=== PATIENT | female | born 1935 | race Caucasian/White ===

== ENCOUNTER 2018-12-06 11:09 | Observation (INO) | payer MEDICARE, BC ==
[2018-12-06] MEDS ORDERED: NS 0.9% 1000 ML** 1,000 ML IV ONE (11:16)
--- NOTE | 2018-12-06 11:19 | ED ---
Neurological HPI - HPI Summary HPI Summary: Patient is a 83 y/o F presenting to ED via EMS with complaints of dizziness, near syncope, possible left sided facial droop. Patient woke up at 0500 with dizziness, states that she later felt near syncopal. She believes she went to sleep at around midnight. had thought the patient was altered, EMS was called. EMS reported that they were unsure if patient had a mild left facial droop, no other neurological Sx are otherwise reported. PMHx of diabetes, BG 146 per EMS. In room, patient claims dizziness only when standing. Chest pain, SOB, palpitations are denied. PMHx of DVT, no Hx of CVA. On triage, pain is denied, nothing is noted to aggravate/alleviate Sx. Home medications and allergies are reviewed. EMS arrived with patient at 1109. provider at bedside immediately to evaluate, NIH started at 1110. - History of Current Complaint Stated Complaint: DIZZINESS Hx Obtained From: Patient Onset/Duration: Started hours ago - 0500 dizziness, Still Present Timing: Constant Current Severity: None - pain denied Neurological Deficit Location: Facial - left Pain Intensity: 0 Pain Scale Used: 0-10 Numeric - 0/10 Character: Dizzy, Other: - near syncope, left facial droop Aggravating: Nothing Alleviating: Nothing Associated Signs and Symptoms: Positive: Weakness - left facial droop, Dizziness - Additional Pertinent History Primary Care Physician: [id number] - Allergy/Home Medications Allergies/Adverse Reactions: Allergies Allergy/AdvReac Type Severity Reaction Status Date / Time morphine Allergy Intermediate Hallucinati Verified 12/06/18 11:36 ons oxycodone Allergy Intermediate Hallucinati Verified 12/06/18 11:36 ons promethazine Allergy Intermediate Hallucinati Verified 12/06/18 11:36 ons Iodinated Contrast- Oral and Allergy Unknown Verified 12/06/18 11:36 IV Dye Reaction Details Estrogens AdvReac Severe Blood clots Verified 12/06/18 11:36 Home Medications: Home Medications Enoxaparin Sodium [Lovenox] 70 mg SUBCUT Q12H 12/06/18 [History Confirmed ] Glimepiride (NF) 1 mg PO DAILY 12/06/18 [History Confirmed 12/06/18] Methotrexate TAB* 10 mg PO WEEKLY 12/06/18 [History Confirmed 12/06/18] Metoprolol Succinate XL TAB* [Toprol XL TAB*] 100 mg PO BID 12/06/18 [History Confirmed 12/06/18] amLODIPine TAB* [Norvasc 5 mg TAB*] 5 mg PO DAILY 12/06/18 [History Confirmed ] PMH/Surg Hx/FS Hx/Imm Hx Endocrine/Hematology History: Reports: Hx Diabetes Denies: Hx Systemic Lupus Erythematosus Cardiovascular History: Reports: Hx Deep Vein Thrombosis - Left leg, Hx Hypertension Denies: Hx Congestive Heart Failure, Hx Pacemaker/ICD History: Reports: Other Problems/Disorders - urinary incontinence Denies: Hx Dialysis, Hx Renal Disease Musculoskeletal History: Reports: Hx Arthritis, Hx Rheumatoid Arthritis, Hx Bursitis, Other Musculoskeletal History - lumbar spinal stenosis, degenerative disc disease Sensory History: Denies: Hx Hearing Aid Psychiatric History: Denies: Hx Panic Disorder - Cancer History Cancer Type, Location and Year: Skin ca Hx Chemotherapy: No Hx Radiation Therapy: No - Surgical History Surgery Procedure, Year, and Place: Lumbar laminectomy-2009Cervical laminectomy- 2010[place] filter-2000Bladder sling-2001, carpal tunnel , tumor removed R wrist, cataract surgery - Family History Known Family History: Positive: Other - nephew and uncle with h/o blood clots. - Social History Alcohol Use: None Substance Use Type: Reports: None Smoking Status (MU): Never Smoked Tobacco Review of Systems Negative: Palpitations, Chest Pain Negative: Shortness Of Breath Neurological: Other - POSITIVE - DIZZINESS Positive: Weakness - LEFT FACIAL DROOP, Syncope - NEAR All Other Systems Reviewed And Are Negative: Yes Physical Exam - Summary Physical Exam Summary: GENERAL: Patient is a well-developed and nourished FEMALE who is lying comfortable in the stretcher. Patient is not in any acute respiratory distress. HEAD AND FACE: Normocephalic EYES: PERRLA, EOMI x 2. EARS: Hearing grossly intact. MOUTH: Oropharynx within normal limits. NECK: Supple, trachea is midline, no adenopathy, no JVD, no carotid bruit. CHEST: Symmetric, no tenderness at palpation LUNGS: Clear to auscultation bilaterally. No wheezing or crackles. CVS: Regular rate and rhythm, S1 and S2 present, no murmurs or gallops appreciated. ABDOMEN: Soft, non-tender. Bowel sounds are normal. No abdominal abnormal pulsations. EXTREMITIES: Full ROM in all major joints, no edema, no cyanosis or clubbing. NEURO: Alert and oriented x 3. No acute neurological deficits. Speech is normal and follows commands. Cranial nerves II-XII grossly intact, no dysmetria finger to nose, nml heel to kwan. GCS 15, NIH 0. Triage Information Reviewed: Yes Vital Signs On Initial Exam: Initial Vitals Temp Pulse Resp BP Pulse Ox 97.8 F 63 16 154/67 95 12/06/18 11:23 12/06/18 11:23 12/06/18 11:23 12/06/18 11:23 12/06/18 11:23 Vital Signs Reviewed: Yes - [place] Coma Scale Best Eye Response: 4 - Spontaneous Best Motor Response: 6 - Obeys Commands Best Verbal Response: 5 - Oriented Coma Scale Total: 15 Diagnostics - Laboratory Result Diagrams: 12/06/18 11:50 12/06/18 11:50 Lab Statement: Any lab studies that have been ordered have been reviewed, and results considered in the medical decision making process. - Radiology CXR Radiology Interpretation Completed By: Radiologist Summary of Radiographic Findings: CXR IMPRESSION: NO ACTIVE CARDIOPULMONARY DISEASE. THIS REPORT WAS REVIEWED BY ED PHYSICIAN. - CT BRAIN CT CT Interpretation Completed By: Radiologist Summary of CT Findings: BRAIN CT IMPRESSION: NO ACUTE INTRACRANIAL PATHOLOGY. PROXIMAL VESSEL ISCHEMIC CHANGES. THIS REPORT WAS REVIEWED BY ED PHYSICIAN. - EKG 1125 Cardiac Rate: Bradycardia - rate of 59 BPM EKG Rhythm: Sinus Bradycardia Ectopy: PVCs EKG Comparison: No Significant Change - similar to previous EKG done 10/27/11. Summary of EKG Findings: EKG showed sinus bradycardia with rate of 59 BPM, occasional PVCs, intervted T waves in anterior leads, similar to previous EKG done 10/27/11. NIH Scale - NIH Scale Level of Consciousness: Alert/Keenly Responsive Ask Patient the Month and His/Her Age: Both Correct Ask Pt to Open/Close Eyes and Internal Controls Analyst/Release Non-Paretic Hand: Both Correctly Best Gaze (Only Horizontal Eye Movement): Normal Visual Field Testing: No Visual Loss Facial Paresis-Pt to Smile & Close Eyes or Grimace Symmetry: Normal/Symmetrical Motor Function - Right Arm: No Drift-Holds 10 Seconds Motor Function - Left Arm: No Drift-Holds 10 Seconds Motor Function - Right Leg: No Drift-Holds 10 Seconds Motor Function - Left Leg: No Drift-Holds 10 Seconds Limb Ataxia-Must be out of Proportion to Weakness Present: Absent Sensory (Use Pinprick to Test Arms/Legs/Trunk/Face): Normal Best Language (Describe Picture, Name Items): No Aphasia Dysarthria (Read Several Words): Normal Extinction and Inattention: No Abnormality Total Score: 0 Re-Evaluation - Re-Evaluation First Eval Re-Evaluation Time: 11:27 Comment: has arrived in ED, he notes that patient does not appear to have facial droop but states that patient has possibly slightly slurred speech. However, the notes that he has hearing aids and is somewhat hard of hearing. Second Eval Re-Evaluation Time: 13:18 Comment: Discussed results with patient, patient to be admitted. The patient agrees with this plan. Course/Dx - Course Course Of Treatment: Patient is a 83 y/o F presenting to ED via EMS with complaints of dizziness, near syncope, possible left sided facial droop. Patient woke up at 0500 with dizziness, states that she later felt near syncopal. She believes she went to sleep at around midnight. had thought the patient was altered, EMS was called. EMS reported that they were unsure if patient had a mild left facial droop, no other neurological Sx are otherwise reported. PMHx of diabetes, BG 146 per EMS. In room, patient claims dizziness only when standing. Chest pain, SOB, palpitations are denied. PMHx of DVT, no Hx of CVA. NEURO: Alert and oriented x 3. No acute neurological deficits. Speech is normal and follows commands. Cranial nerves II-XII grossly intact, no dysmetria finger to nose, nml heel to kwan. GCS 15, NIH 0. later arrived in ED, he notes that patient does not appear to have facial droop but states that patient has possibly slightly slurred speech. EKG showed sinus bradycardia with rate of 59 BPM, occasional PVCs, intervted T waves in anterior leads, similar to previous EKG done 10/27/11. Labs showed RDW 16, BUN/creatinine ratio 27.8, glucose 146, lactic acid 1.1, trop 0, Triglycerides 182, cholesterol 186, LDL cholesterol 108, HDL cholesterol 41.2. UA showed 2+ protein , no ketones, nitrate, bilirubin, bacteria, glucose. During ED course, patient received antivert 25 mg PO, reglan 10 mg IV, and fluids. BRAIN CT IMPRESSION: NO ACUTE INTRACRANIAL PATHOLOGY. PROXIMAL VESSEL ISCHEMIC CHANGES. CXR IMPRESSION: NO ACTIVE CARDIOPULMONARY DISEASE. 1321 - Patient's case was discussed with Dr. Gill, Dr. Gill accepts for admission. Patient is agreeable with admission. - Diagnoses Provider Diagnoses: Dizziness - Physician Notifications Discussed Care Of Patient With: Denae Gill Time Discussed With Above Provider: 13:21 Instructed by Provider To: Other - 1321 - Patient's case was discussed with Dr. Gill, Dr. Gill accepts for admission. Discharge - Sign-Out/Discharge Documenting (check all that apply): Patient Departure - admit Patient Received Moderate/Deep Sedation with Procedure: No - Discharge Plan Condition: Stable Disposition: ADMITTED TO [facility] - Billing Disposition and Condition Condition: STABLE Disposition: Admitted to [facility] - Attestation Statements Document Initiated by Scribe: Yes Documenting Scribe: XOCHITL HAMMOND Provider For Whom Scribe is Documenting (Include Credential): LAUREEN CULLEN MD Scribe Attestation: XOCHITL Kingston , scribed for LAUREEN CULLEN MD on 12/06/18 at 2123. Scribe Documentation Reviewed: Yes Provider Attestation: The documentation as recorded by the XOCHITL sarmiento accurately reflects the service I personally performed and the decisions made by , LAUREEN CULLEN MD Status of Scribe Document: Viewed
[2018-12-06 12:02] LABS: ABS Basophils 0 10^3/ul (0-0.2); ABS Eosinophils 0 10^3/ul (0-0.6); ABS Lymphocytes 1.6 10^3/ul (1.0-4.8); ABS Monocytes 0.2 10^3/ul (0-0.8); ABS Neutrophils 3.7 10^3/ul (1.5-7.7); ABS Nucleated RBC 0 10^3/ul; Eosinophil % 0.6 %; Hematocrit 44 % (35-47); Hemoglobin 14.6 g/dl (12.0-16.0); Lymphocyte % 28.4 %; Mean Corpuscular HGB Conc 33 g/dl (31-36); Mean Corpuscular Hemoglobin 29 pg (27-31); Mean Corpuscular Volume 87 fL (80-97); Mean Platelet Volume 9.6 fL (7.4-10.4); Nucleated Red Blood Cells % 0.1; Platelet Count 173 10^3/ul (150-450); Red Cell Distribution Width 16 % (10.5-15); White Blood Count 5.6 10^3/ul (3.5-10.8)
[2018-12-06 12:15] LABS: Activated Partial Thrombo Time 32.6 seconds (26.0-36.3); INR 0.98 (0.77-1.02)
[2018-12-06 12:17] LABS: Albumin 4.2 g/dL (3.2-5.2); Albumin/Globulin Ratio 1.1 (1-3); BUN/Creatinine Ratio 27.8 (8-20); Calcium 9.9 mg/dL (8.6-10.3); EGFR African American 129.8 (>60); EGFR Non-African American 107.3 (>60); Globulin 3.9 g/dL (2-4); HDL Cholesterol 41.2 mg/dL; Potassium 4.1 mmol/L (3.5-5.0); Total Bilirubin 0.7 mg/dL (0.2-1.0); Total Protein 8.1 g/dL (6.4-8.9)
[2018-12-06 12:46] LABS: Urine Appearance Clear; Urine Bacteria Absent (Absent); Urine Bilirubin Negative (Negative); Urine Blood Negative (Negative); Urine Color Yellow; Urine Glucose Negative (Negative); Urine Ketones Negative (Negative); Urine Nitrite Negative (Negative); Urine Protein 2+(100 mg/dL) (Negative); Urine Red Blood Cell Trace(0-2/hpf) (Absent); Urine Specific Gravity 1.012 (1.010-1.030); Urine Urobilinogen Negative (Negative); Urine White Blood Cell Trace(0-5/hpf) (Absent)
[2018-12-06] MEDS ORDERED: Meclizine TAB* 12.5 MG PO ONE (12:49)
[2018-12-06] MEDS ORDERED: Metoclopramide IV* 5 MG/ML 2 ML VIAL IV ONE (12:49)
[2018-12-06] MEDS ORDERED: Ondansetron INJ* 2 MG/ML VIAL IV PRN (16:42)
[2018-12-06] MEDS ORDERED: Meclizine TAB* 12.5 MG PO PRN (16:42)
[2018-12-06] MEDS ORDERED: Dextrose 50% Syringe 50 ML* 25 GM/50 ML SYRINGE IV PUSH PRN (16:44)
--- NOTE | 2018-12-06 19:21 | HP ---
HISTORY AND PHYSICAL DATE OF ADMISSION: 12/06/18 PRIMARY CARE PROVIDER: Rossana Velez DO CHIEF COMPLAINT: Dizziness HISTORY OF PRESENT ILLNESS: 83-year-old female with a past medical history of uam-twjlwym-jusetjpsh diabetes ; hypertension; recurrent lower extremity DVT, on lifelong anticoagulation; cervical stenosis; chronic low back pain; and hyperlipidemia who presented with acute onset of dizziness and feeling off for 1 day. The patient is a vague historian, but she states that she woke up at about 5 a.m. on the day of presentation and felt "off" and maybe like her head "was full". She is unable to elaborate further exactly what this means. She denies chest pain, shortness of breath, URI symptoms like stuffy nose or post nasal drip, headache, vision changes, confusion, GI/ complaints. She does endorse fatigue, but state that this does not contribute to her feeling off. This morning went to go to the bathroom; when she stood up, she felt dizzy. She did not describe the room spinning around her and she did not have the sensation that she was going to pass out. She denied tunnel vision. She denied any loss of consciousness and she said that she went back to sleep and then continued to feel off with fatigue, malaise, and dizziness, but denied that it was positional. Her is also interviewed at bedside. He denies any speech slurring. He denies any focal weakness. He denies any incontinence of bladder or bowel and he denies any period where the patient was confused or was unresponsive. The patient also denies any confusion or any focal neurologic complaints including paresthesias. EMERGENCY ROOM COURSE: In the emergency room, her blood pressure was 144/68. Her other vital signs were unremarkable. She had labs drawn, which were fully unremarkable including a troponin of 0. She had a brain CT done that was notable for proximal vessel ischemic changes of unknown duration. She had a chest x-ray done as well, which showed no active cardiopulmonary disease. She had a urine sample drawn that showed 2+ protein, but otherwise no evidence of infection. The patient in the emergency room was given 1 L of normal saline, meclizine, and Reglan 10 mg x1. She then slept for 3 hours and awoke and felt better. She attempted to walk with nursing to get to the commode and reports continuing to feel dizzy and unsteady. She states that she has not had a sensation like this before and elected to be admitted for observation for further workup. PAST MEDICAL HISTORY: 1. Ert-jebvkvy-evybnptwq diabetes, well controlled with an A1c of 5.4. 2. Hypertension. 3. Hyperlipidemia. 4. Recurrent lower extremity DVTs, on lifelong anticoagulation. 5. Cervical stenosis. 6. Chronic low back pain. PAST SURGICAL HISTORY: 1. Bilateral cataract. 2. Right total knee replacement. 3. IVC placement. 4. Bladder suspension surgery. 5. Cervical spine surgery. 6. Lumbar spine surgery. MEDICATIONS: As follows: 1. Glimepiride 1 mg p.o. daily. 2. Metformin 500 mg p.o. b.i.d. 3. Metoprolol succinate 100 mg p.o. b.i.d. 4. Rabeprazole sodium 20 mg p.o. b.i.d. 5. Amlodipine 5 mg p.o. daily. 6. Enoxaparin 70 mg subcu q.12 hours. 7. Folic acid 1 mg p.o. b.i.d. 8. Levothyroxine 100 mcg p.o. daily. 9. Methotrexate 2.5 mg p.o. 1x a week FAMILY HISTORY: Notable for a mother who of cancer and a father who of heart disease. Otherwise, noncontributory. SOCIAL HISTORY: She lives at home with her , Nolan, who is her healthcare proxy. She rarely drinks alcohol. She is a lifetime nonsmoker or tobacco user. She denies any history of other substance use. She is currently retired and she used to work in a factory. REVIEW OF SYSTEMS: The patient denies fevers. Cardiac: She denies chest pain. Respiratory: She denies cough, she denies shortness of breath. GI: She denies nausea and vomiting, diarrhea, or abdominal pain. : She denies hematuria or dysuria. Neurologic: She does endorse global dizziness, but without focal weakness or sensory loss. She has no visual complaints. She has no dysphagia. She has no arthralgias or myalgias. Musculoskeletal: She does endorse chronic low back and neck pain that is unchanged in nature. Skin: She denies rashes or lesions. She denies depression or anxiety. PHYSICAL EXAMINATION GENERAL: She is a well-appearing woman, in no acute distress, lying in bed, pleasant and conversant, A and O x4. VITAL SIGNS: As noted, her blood pressure is 144/68; heart rate 55, sinus; respiratory rate 12; she is satting 98% on room air. HEENT: Her pupils are equal and reactive. She has moist mucous membranes. NECK: She has no cervical lymphadenopathy. LUNGS: Clear to auscultation bilaterally with no work of breathing. HEART: She has regular rate and rhythm with no murmurs, rubs, or gallops. ABDOMEN: Her belly is soft, nontender and nondistended with normoactive bowel sounds in all 4 quadrants. She has no hepatosplenomegaly. MUSCULOSKELETAL: She has no clubbing or cyanosis and full range of motion in all 4 legs. NEURO: Her cranial nerves II through XII are intact. She has 5/5 strength in bilateral upper extremities and bilateral lower extremities. She has unsteady gait on ambulation with nurse at bedside. SKIN: Her skin is without rashes or abnormalities. DIAGNOSTIC STUDIES/LAB DATA: She has a CBC with white blood cell count of 5.6, H and H of 14.6 and 44, and platelets of 173. She had an INR done, is 0.98. Her chemistry showed a sodium of 138, potassium 4.1, chloride 103, carbon dioxide 26, anion gap 9, creatinine 1.5, glucose 146, calcium 9.9. LFTs are unremarkable. UA was done, which is notable for 2+ protein, otherwise unremarkable. Imaging done is notable for a brain CT without contrast, which noted no acute intracranial pathology and proximal vessel ischemic changes. She had an EKG done, which was notable for sinus bradycardia, no evidence of acute ischemia and 1 VPC. Compared to prior, EKG largely unchanged with the exception of new VPC. She had a chest x-ray done that was unremarkable for active cardiopulmonary disease. All films were reviewed personally and EKG was reviewed personally. ASSESSMENT AND PLAN: This is an 83-year-old female with a past medical history of hle-grrojrd-cdudmvkgf diabetes; hypertension; hyperlipidemia; recurrent lower extremity DVTs, on lifelong anticoagulation; cervical stenosis; and chronic low back pain who presented with 1 day of acute onset of dizziness and nonspecific complaints of fatigue. In the emergency room, her imaging and vitals are reassuring and her NIH stroke scale was initially 0. Because she has persistent dizziness on ambulation after supportive treatment in the emergency room, she is admitted to the medicine service for observation and further workup of her dizziness. 1. Dizziness: Differential diagnosis for dizziness is broad and includes neurologic and cardiac reasons. We will admit the patient to the [facility] floor and keep her on tele overnight given her sinus bradycardia. Her troponins were flat. She has no chest pain. No indication to continue trending them. We will do orthostatic vitals when she reaches the floor. We will check TSH and B12 for metabolic reasons. In terms of neuro, I did consult Dr. Guerra and he will see the patient on 12/08/18. I have ordered MRI brain to follow up on her CT head. I have also ordered PT and OT consults to continue to work with her based on her wide- based gait and if needed, vestibular ocular training. She can have meclizine p.r.n. for dizziness and for symptomatic or supportive treatment of possible benign paroxysmal positional vertigo. 2. Diabetes: She is well controlled with last A1c of 5.4. Hold metformin and glimepiride. Continue low-dose sliding scale lispro. 3. Recurrent deep vein thrombosis: Continue her treatment dose Lovenox. 4. She has chronic low back pain and cervical stenosis: She has Tylenol p.r.n. for pain medication, which is consistent with her home pain medication. 5. Hypothyroid: Continue her Synthroid. 6. Hypertension: Continue her amlodipine and metoprolol. Her metoprolol dose is lowered slightly from 100 mg p.o. b.i.d. of the succinate to tartrate 50 mg p.o. b.i.d. given bradycardia. 7. Nutrition: She can be on carb consistent diet. 8. DVT prophylaxis: She is on treatment dose Lovenox. 9. Code status: She is full code. 10. Disposition. She is observation, admitted to [facility] for further workup. Specialists: Neurology with formal consult placed to Dr. Guerra. PCP will be contacted in the morning. The plan was discussed with her and her family members and they are in agreement. TIME SPENT: 60 minutes was spent in the planning and execution of this admission with over half of that spent at the bedside of the patient and providing direct patient care. [id number]/[facility] #: [id number] [facility]
[2018-12-06] MEDS: Folic Acid TAB* 1 MG PO SCH (21:00)
[2018-12-06] MEDS ORDERED: Methotrexate TAB* 2.5 MG PO SCH (21:00)
[2018-12-06] MEDS: amLODIPine TAB* 5 MG PO SCH (21:01)
[2018-12-06] MEDS: Metoprolol Tartrate TAB* 50 mg PO SCH (21:02)
[2018-12-06] MEDS: Enoxaparin(*) 80 MG/0.8 ML SYR SUBCUT SCH (21:03)
[2018-12-06] MEDS: Acetaminophen TAB* 325 MG PO PRN (22:08)
[2018-12-07 05:36] LABS: ABS Basophils 0.1 10^3/ul (0-0.2); ABS Eosinophils 0.1 10^3/ul (0-0.6); ABS Lymphocytes 2.8 10^3/ul (1.0-4.8); ABS Monocytes 0.6 10^3/ul (0-0.8); ABS Neutrophils 3.1 10^3/ul (1.5-7.7); ABS Nucleated RBC 0 10^3/ul; Eosinophil % 2.2 %; Hematocrit 40 % (35-47); Hemoglobin 13.2 g/dl (12.0-16.0); Lymphocyte % 42.1 %; Mean Corpuscular HGB Conc 33 g/dl (31-36); Mean Corpuscular Hemoglobin 29 pg (27-31); Mean Corpuscular Volume 87 fL (80-97); Mean Platelet Volume 9.4 fL (7.4-10.4); Nucleated Red Blood Cells % 0; Platelet Count 182 10^3/ul (150-450); Red Blood Count 4.61 10^6/ul (4.00-5.40); Red Cell Distribution Width 16 % (10.5-15); White Blood Count 6.7 10^3/ul (3.5-10.8)
[2018-12-07 05:53] LABS: Potassium 3.7 mmol/L (3.5-5.0)
[2018-12-07 05:54] LABS: EGFR African American 96.2 (>60); EGFR Non-African American 79.5 (>60)
[2018-12-07] MEDS ORDERED: Levothyroxine TAB* 100 MCG TAB PO SCH (06:00)
[2018-12-07] MEDS: Insulin LISPRO* 1 UNITS UNIT SUBCUT SCH ×2 (07:25→11:18)
[2018-12-07] MEDS ORDERED: amLODIPine TAB* 5 MG PO SCH (09:00)
--- NOTE | 2018-12-07 09:13 | PN ---
Subjective Date of Service: 12/07/18 Interval History: HD #2 on Observatin 83 yo F who presented with vague c/o dizziness. Overnight no acute events, was HTN 2/2 to missing her home medications during the day while in the ER, resolved with home meds. MRI done overnight, no acute changes Tele monitored overnight-no acute events, orthostatic vitals done, negative Pt reported intermittent mild dizziness overnight. this morning she has none, we had a long discussion about her actual symptoms which remain vauge, and she tells me that her home blood sugars run in the 40s-60s, her last A1C on file is 5.4, which is overly controlled ofr her age, we discuss backing off her DM meds as well as following up with PCP. MRI and imaging and labs are reassuring. She and agree for d/c to home Objective Active Medications: Acetaminophen (Tylenol Tab*) 650 mg PO Q6H PRN PRN Reason: FEVER/PAIN Last Admin: 12/06/18 22:08 Dose: 650 mg Amlodipine Besylate (Norvasc Tab*) 5 mg PO DAILY [facility] Last Admin: 12/06/18 21:01 Dose: 5 mg Dextrose (D50w Syringe 50 Ml*) 12.5 gm IV PUSH .FOR FS < 60 - SS PRN PRN Reason: FS < 60 Enoxaparin Sodium (Lovenox(*)) 70 mg SUBCUT Q12HR [facility] Last Admin: 12/06/18 21:03 Dose: 70 mg Folic Acid (Folvite Tab*) 1 mg PO BID [facility] Last Admin: 12/06/18 21:00 Dose: 1 mg Insulin Human Lispro (Humalog*) 0 - 10 units SUBCUT [facility]; Protocol Last Admin: 12/07/18 07:25 Dose: Not Given Levothyroxine Sodium (Synthroid Tab*) 100 mcg PO 0600 [facility] Last Admin: 12/07/18 05:10 Dose: 100 mcg Meclizine HCl (Antivert Tab*) 25 mg PO Q8HR PRN PRN Reason: DIZZINESS Methotrexate (Methotrexate Tab*) 10 mg PO Mo [facility] Last Admin: 12/06/18 21:02 Dose: 10 mg Metoprolol Tartrate (Lopressor Tab*) 50 mg PO Q12HR [facility] Last Admin: 12/06/18 21:02 Dose: 50 mg Ondansetron HCl (Zofran Inj*) 4 mg IV Q4H PRN PRN Reason: NAUSEA Vital Signs - 8 hr 12/07/18 12/07/18 12/07/18 03:06 03:20 03:38 Temperature 98.6 F Pulse Rate 54 Respiratory 18 Rate Blood Pressure 141/51 141/51 (mmHg) O2 Sat by Pulse 92 95 Oximetry 12/07/18 07:32 Temperature 97.7 F Pulse Rate 53 Respiratory 20 Rate Blood Pressure 145/51 (mmHg) O2 Sat by Pulse 98 Oximetry Oxygen Devices in Use Now: Nasal Cannula Appearance: Elderly woman in nad Eyes: No Scleral Icterus, PERRLA Ears/Nose/Mouth/Throat: NL Teeth, Lips, Gums, Mucous Membranes Moist Neck: NL Appearance and Movements; NL JVP, Trachea Midline Respiratory: Symmetrical Chest Expansion and Respiratory Effort, Clear to Auscultation Cardiovascular: NL Sounds; No Murmurs; No JVD, RRR Abdominal: NL Sounds; No Tenderness; No Distention Lymphatic: No Cervical Adenopathy Extremities: No Edema Skin: No Rash or Ulcers Neurological: Alert and Oriented x 3 Result Diagrams: 12/07/18 05:22 12/07/18 05:22 Assess/Plan/Problems-Billing Assessment: 83 yo F with PMH NIDDM, HTN, HLD, recurrent DVT on lifelong AC with Lovenox who presented with vague c/o dizziness, obsereved for 24 hours with no e/o stroke, arrythmia, hypotnesion. She may have had a bout of NPPV or low blood sugar, she is stable for d/c to home - Patient Problems (1) Dizziness Current Visit: Yes Status: Acute Code(s): R42 - DIZZINESS AND GIDDINESS SNOMED Code(s): 259602145 Comment: As per above DDX is broad, tele stable, EKG stable, CTH and MRI stable, no metabolic causes seen, possibly all hypoglyemia or BPPV (2) Deep vein thrombosis (DVT) of left lower extremity Current Visit: No Status: Acute Code(s): I82.402 - ACUTE EMBOLISM AND THOMBOS UNSP DEEP VEINS OF L LOW EXTREM SNOMED Code(s): 727790126 Comment: Patient has a history of multiple DVTs and follows with Dr. Alamo as an outpatient. Continue Lovenox dosing at 70 mg BID. Patient denies CP, SOB. Continue prn pain medication. (3) HTN (hypertension) Current Visit: No Status: Chronic Code(s): I10 - ESSENTIAL (PRIMARY) HYPERTENSION SNOMED Code(s): 58241800 Comment: Controlled. Continue home meds (4) Hypothyroidism Current Visit: No Status: Chronic Code(s): E03.9 - HYPOTHYROIDISM, UNSPECIFIED SNOMED Code(s): 10176699 Comment: Continue levothyroxine. (5) GERD (gastroesophageal reflux disease) Current Visit: No Status: Chronic Code(s): K21.9 - GASTRO-ESOPHAGEAL REFLUX DISEASE WITHOUT ESOPHAGITIS SNOMED Code(s): 351101311 Comment: Continue home PPI (6) DVT prophylaxis Current Visit: No Status: Acute Code(s): SMU0096 - SNOMED Code(s): 175401435 Comment: Continue SQ Lovenox BID. (7) Full code status Current Visit: No Status: Acute Code(s): Z78.9 - OTHER SPECIFIED HEALTH STATUS SNOMED Code(s): 880663277
[2018-12-07] MEDS: Folic Acid TAB* 1 MG PO SCH (09:48)
[2018-12-07] MEDS: amLODIPine TAB* 5 MG PO SCH (09:48)
[2018-12-07] MEDS: Metoprolol Tartrate TAB* 50 mg PO SCH (09:48)
[2018-12-07] MEDS: Enoxaparin(*) 80 MG/0.8 ML SYR SUBCUT SCH (09:49)
[2018-12-07] MEDS: Acetaminophen TAB* 325 MG PO PRN (11:37)
[2018-12-07 12:49] VITALS: BP 127/55
--- NOTE | 2018-12-07 22:15 | DS ---
CC: Dr. Rossana Velez * DISCHARGE SUMMARY: DATE OF ADMISSION: 12/06/18 DATE OF DISCHARGE: 12/07/18 PRIMARY CARE DOCTOR: Rossana Velez DO, with whom she has a followup appointment on 12/24/18 at 9:40 a.m. PRIMARY DIAGNOSIS: Dizziness. SECONDARY DIAGNOSES: 1. Rok-kaqmiuo-rnklaqkuf diabetes. 2. Hypertension. 3. Recurrent lower extremity deep venous thrombosis, on lifelong anticoagulation. 4. Cervical stenosis. 5. Chronic low back pain. 6. Hyperlipidemia. MEDICATIONS ON DISCHARGE: 1. Amlodipine 5 mg p.o. daily. 2. Enoxaparin 70 mg subcutaneous q.12 hours. 3. Folic acid 1 mg p.o. b.i.d. 4. Levothyroxine 100 mcg p.o. q.a.m. 5. Metformin 500 mg p.o. b.i.d. 6. Methotrexate 10 mg p.o. weekly. 7. Metoprolol succinate 100 mg p.o. daily. 8. Rabeprazole 20 mg p.o. b.i.d. Medication changes on this discharge include: 1. The lowering of metoprolol succinate from 100 mg p.o. b.i.d. to 100 mg p.o. daily. 2. Also, we advised the patient to stop taking glimepiride 2 mg p.o. daily. HISTORY OF PRESENT ILLNESS AND HOSPITAL COURSE: As follows: An 83-year-old female with above past medical history who presented to the emergency room on with vague history of not feeling right. The patient reports that she woke up around 5 a.m. and felt off. She went up to go to the bathroom and said she had a brief sensation of feeling dizzy, but she was unable to elaborate further exactly what this means. She denied chest pain, shortness of breath, upper respiratory symptoms, headache, vision changes, confusion, any loss of consciousness, or any period of tunnel vision. She does endorse fatigue, although this is sort of chronic and ongoing. Her was also interviewed at bedside. He denied any speech slurring or any focal weakness. He denies any incontinence of bladder or bowel and denies any period where the patient was confused or unresponsive. EMERGENCY ROOM COURSE: In the emergency room, her blood pressure was 144/68, her other vital signs were unremarkable. She had labs drawn which were fully unremarkable including a troponin of 0. She had a brain CT done that was notable for proximal vessel ischemia changes of unknown duration. She had a chest x-ray done that showed no evidence of cardiopulmonary disease. She had a UA done that showed 2+ protein, but otherwise no evidence of infection. The patient in the emergency room was given 1 L of normal saline, meclizine, and Reglan for presumed BPPV and was admitted to the observation service overnight for continued monitoring. While in the hospital, her hospital course by problem is as follows: 1. Dizziness. Obviously, the differential diagnosis for dizziness is broad and includes neurologic and cardiac reasons. We did monitor the patient for 24 hours on telemetry. She had no concerning events and remained in sinus rhythm with very scant PVCs. She had an MRI, which showed no changes or concern for recent pathology. We did do orthostatic vitals when she reached the floor and they were negative for orthostasis. TSH and B12 were checked and they were unremarkable. We did discuss the case with Neurology, although ultimately the patient elected to leave the hospital before seeing the neurologist because she was feeling better. She did walk with Physical Therapy and work with Occupation Therapy and was noted to be ambulating at her baseline. The patient denied that her symptoms persisted since she was admitted to the hospital. Of note, we did discuss with the patient on further history whether she thought her blood sugar could be low during this time. She says that her blood sugar at times runs in between 50 and 60 and she believes that this is a normal and healthy number. We educated her that probably her blood sugar has been overly controlled given her age of 83 and her recent A1c of 5.4. We did discontinue glimepiride. We also lowered her metoprolol succinate instead of 100 b.i.d. to 100 daily thinking that possibly bradycardia could have played a part. Ultimately, the patient was able to ambulate, tolerate p.o., and safely navigate her home environment. She and her felt comfortable with discharge to home and close followup with primary care provider. 2. Diabetes. As above, she is well controlled with last A1c of 5.4. We held her metformin and glimepiride while in the hospital and discharged her on her home dose metformin without glimepiride. 3. Her recurrent deep venous thrombosis. We continued treatment with Lovenox. She follows with Dr. Alamo for this. 4. Chronic low back pain and cervical stenosis. She has Tylenol p.r.n. for this pain medication. She did not feel that cervical pain or cervical stenosis or any radiculopathy was contributing to her current presentation of dizziness. 5. Hypothyroid. Her TSH was checked and we continued her home Synthroid. 6. Hypertension. We continued her home amlodipine and did lower her metoprolol as per above. She remained on treatment dose Lovenox for her DVT prophylaxis. She was ambulating and tolerating p.o. well and ultimately as per above, decided to return to home as she had no further symptoms of dizziness once she was admitted to the hospital. PHYSICAL EXAM ON DAY OF DISCHARGE: Notable for vital signs of blood pressure 127/55, heart rate of 55, respiratory rate 18, satting 97% on room air, and afebrile at 97.4. The patient is a mendoza woman appearing younger than stated age, in no acute distress. She is sitting up in bed. Her cranial nerves II through XII are intact. She has no focal weakness. She has no difficulty swallowing. She has regular rate and rhythm, with no murmurs, rubs, or gallops. Her lungs are clear to auscultation bilaterally. Her belly was soft, nontender, nondistended. It has positive bowel sounds in all 4 quadrants. She has full range of motion. She does not have on my physical exam any reproducible dizziness with head movement. She has no nystagmus on my physical exam as well. LABORATORY DATA: Her labs on this hospitalization include a CBC that was drawn , 12/07/18, which showed a white blood cell count of 6.7, hemoglobin of 13.2, hematocrit of 40, platelets of 182. BMP was done which showed sodium of 141, potassium 3.7, chloride 108, carbon dioxide 26, BUN 21, creatinine 0.7, and glucose of 108. UA was done in this hospitalization which showed 2+ protein but no other abnormalities. Imaging that was done during this hospitalization includes brain CT which showed chronic small vessel ischemic changes of unknown duration, but no acute intracranial pathology. Brain MRI was ordered as well and completed on 12/06/18 and showed no intracranial bleed, suspicious mass, or mass effect. Ventricles appear unremarkable. Moderate chronic small vessel ischemic-type change in white matter without abnormality or restricted diffusion to suggest an acute ischemic event, thus ruling out stroke. EKG was done that showed sinus bradycardia with no evidence of ischemia. Chest x-ray was done, which showed no cardiopulmonary disease. CONSULTS DURING THIS HOSPITALIZATION: Include Neurology, although the patient and her elected to leave without being seen by neurologist after the reassuring MRI and thus consult was not completed. THINGS TO FOLLOW UP POST DISCHARGE: 1. Dizziness. PCP can follow up to determine if her sensations are improving. Because they are quite vague and difficult to explain, we encouraged the patient to write down exactly how she is feeling to give a clear picture. Most likely, she experienced an episode of benign positional vertigo versus hypoglycemia as our leading diagnosis. We did discontinue her glimepiride and we can continue to follow her sugars as outpatient and A1c is very well controlled with metformin alone. Most likely given her age of 83, permissive mild hyperglycemia is probably ideal. 2. Her blood pressure medications, we did lower her metoprolol dose and this can be uptitrated if she has significant tachycardia or any changes in her blood pressure. TIME SPENT: Forty-five minutes were spent in the planning of this discharge with over half of that spent at the bedside in the care of the patient and education of her and her . They feel comfortable with her returning to home. She is at her baseline and have no further questions on discharge. They agree to follow up with primary care provider and the office was called and I set up an appointment for her in 2 weeks and she is aware and is planning on following up. If you have any questions about the care of this patient during this hospitalization, please do not hesitate to reach out and contact us directly. The patient and family are in agreement and are stable for discharge and leave on 12/07/18. [id number]/[facility] #: [id number] AVELINA
== END 2018-12-07 13:00 | disposition home or self-care (01) ==
LOC: ED 11:09 → MEDTELE 18:01
PROVIDERS: ADMIT Internal Medicine; ATTEND Internal Medicine
DX: R42 Dizziness and giddiness (principal); E11.9 Type 2 diabetes mellitus without complications; I10 Essential (primary) hypertension; I82.409 Acute embolism and thrombosis of unspecified deep veins of unspecified lower extremity; Z79.01 Long term (current) use of anticoagulants; N88.2 Stricture and stenosis of cervix uteri; M54.5 Low back pain; E78.5 Hyperlipidemia, unspecified; R53.1 Weakness; Z88.6 Allergy status to analgesic agent; R55 Syncope and collapse; Z85.828 Personal history of other malignant neoplasm of skin
CPT/HCPCS: 36415; 70450; 70551; 71045; 80048; 80053; 80061; 81003; 81015; 83605; 84484; 85025; 85610; 85730; 86850; 86900; 86901; 87040; 87086; 93005; 96361; 96372; 96374; 96375; 99285; A9270-GY; G0378; G8978-GP-CI; G8979-GP-CI; G8980-GP-CI; J1650; J2765; J8610